=== PATIENT | male | born 2000 | race Caucasian/White ===

== ENCOUNTER 2024-05-14 16:00 | Emergency (ER) | payer MEDICAID ==
[~2024-05-14] VITALS: Ht 175.3 cm; Wt 101.6 kg
[2024-05-14 16:55] LABS: BASOPHILS # (AUTO) 0.1 X10'3 (0-0.2); BASOPHILS % (AUTO) 0.8 % (0-1); EOSINOPHILS % (AUTO) 0.2 % (0-6); HEMATOCRIT 47.9 % (42.0-52.0); HEMOGLOBIN 16.8 g/dl (14.0-17.9); LYMPHOCYTES # (AUTO) 2.4 X10'3 (1.1-4.8); LYMPHOCYTES % (AUTO) 23.3 % (21-51); MEAN CORPUSCULAR HEMOGLOBIN 29.7 PG (27.0-31.0); MEAN CORPUSCULAR VOLUME 84.8 FL (78-98); MEAN PLATELET VOLUME 7.7 FL (7.4-10.4); MONOCYTES # (AUTO) 0.6 X10'3 (0-0.9); MONOCYTES % (AUTO) 6.4 % (2-12); NEUTROPHILS % (AUTO) 69.3 % (42-75); PLATELET COUNT 291 X10'3 (140-440); RED BLOOD COUNT 5.65 X10'6 (4.70-6.10); RED CELL DISTRIBUTION WIDTH 13.8 % (11.5-14.5); WHITE BLOOD COUNT 10.1 X10'3 (4.5-11.0)
[2024-05-14 17:17] LABS: ALANINE AMINOTRANSFERASE 101 U/L (12-78); ALBUMIN 4.5 G/DL (3.4-5.0); ALBUMIN/GLOBULIN RATIO 1.3 (1.1-1.5); ALKALINE PHOSPHATASE 68 IU/L (46-116); ANION GAP 7 (8-16); ASPARTATE AMINO TRANSFERASE 44 U/L (10-37); BILIRUBIN,TOTAL 0.9 MG/DL (0.1-1.0); BLOOD UREA NITROGEN 16 MG/DL (7-18); BUN/CREATININE RATIO 19.8 (10.0-20.0); CALCIUM 10.3 MG/DL (8.5-10.1); CHLORIDE 103 MMOL/L (99-107); CREATININE 0.81 MG/DL (0.60-1.10); GLUCOSE 111 MG/DL (70-104); LIPASE 62 U/L (16-77); SODIUM 141 MMOL/L (135-145); TOTAL CARBON DIOXIDE 31.2 MMOL/L (24-32); eCRCL 144 ML/MIN; eGFR > 90 ML/MIN
[2024-05-14 17:33] VITALS: BP 150/102; PULSE 76; RESP 16; O2SAT 98
[2024-05-14] MEDS: ondansetron 4mg rapidly disintigrating tab PO ONE (17:55)
[2024-05-14 18:04] LABS: BILIRUBIN,URINE NEGATIVE (Neg); CLARITY,URINE CLEAR (Clear); COLOR,URINE YELLOW (Yellow); GLUCOSE, URINE NEGATIVE (Neg); KETONES,URINE NEGATIVE (Neg); LEUKOCYTE ESTERASE ,URINE NEGATIVE (Neg); NITRITES, URINE NEGATIVE (Neg); OCCULT BLOOD,URINE NEGATIVE (Neg); PH,URINE 7.5 (4.8-8.0); PROTEIN,URINE NEGATIVE (Neg); UROBILINOGEN,URINE 0.2 E.U/dL (0.2-1.0)
[2024-05-14 18:07] LABS: UA COLLECTION TYPE VOIDED
[2024-05-14 19:12] VITALS: TEMP 98.5
[2024-05-14] MEDS: pantoprazole 40mg Tablet.DR PO ONE (19:16)
[2024-05-14] MEDS: mag hydrox/Alum hydrox/simeth 30ml oral suspension PO ONE (19:16)
[2024-05-14] MEDS: sucralfate 1 gm tablet PO ONE (19:16)
[2024-05-14] MEDS ORDERED: PANT-47 PO (19:21)
[2024-05-14] MEDS ORDERED: ONDA-103 PO (19:21)
== END 2024-05-14 19:28 | disposition home or self-care (01) ==
LOC: ER 16:02
DX: R10.13 Epigastric pain (principal); R11.2 Nausea with vomiting, unspecified; K21.9 Gastro-esophageal reflux disease without esophagitis
CPT/HCPCS: 36415; 80053; 81003; 83690; 85025; 99284; J7030

== ENCOUNTER 2024-08-06 21:32 | Emergency (ER) | payer MEDICAID ==
[~2024-08-06] VITALS: Ht 175.3 cm; Wt 108.0 kg
[~2024-08-06 21:32] MED LIST: ONDA-103 PO; PANT-47 PO
[2024-08-06 21:33] VITALS: BP 129/85; PULSE 75; RESP 16; TEMP 97.8; O2SAT 98
[2024-08-06] MEDS: amox tr/potassium clavulanate 875/125mg TAB PO ONE (21:50)
[2024-08-06] MEDS ORDERED: AMOX-580 PO (21:54)
[2024-08-06] MEDS ORDERED: PSEU120T56 PO (21:54)
[2024-08-06] MEDS ORDERED: FLUT16SP2 BOTHNARES (21:54)
== END 2024-08-06 22:00 | disposition home or self-care (01) ==
LOC: ER 21:33
DX: J32.9 Chronic sinusitis, unspecified (principal); K21.9 Gastro-esophageal reflux disease without esophagitis
CPT/HCPCS: 99283